=== PATIENT | female | born 1965 | race Two or more races ===

== ENCOUNTER 2018-11-14 08:21 | Outpatient (CLI) | payer OTHER ==
[~2018-11-14] VITALS: Ht 165.1 cm; Wt 83.5 kg
== END 2018-11-14 08:40 | disposition home or self-care (01) ==
LOC: OFIC 805 08:21
DX: H90.3 Sensorineural hearing loss, bilateral (principal); H81.49 Vertigo of central origin, unspecified ear; K11.8 Other diseases of salivary glands

== ENCOUNTER 2018-11-20 07:10 | Outpatient (CLI) | payer OTHER | END 2018-11-20 08:33 | disposition home or self-care (01) | LOC: SONOGRAMA 07:10 → MAMO-SONO 07:15 → SONOGRAMA 08:33 | DX: R22.1 Localized swelling, mass and lump, neck (principal) ==

== ENCOUNTER 2018-12-17 11:41 | Outpatient (CLI) | payer OTHER ==
[~2018-12-17] VITALS: Ht 152.4 cm; Wt 83.5 kg
== END 2018-12-17 11:51 | disposition home or self-care (01) ==
LOC: OFIC 805 11:41
DX: H90.3 Sensorineural hearing loss, bilateral (principal); R42 Dizziness and giddiness; K11.1 Hypertrophy of salivary gland; M06.041 Rheumatoid arthritis without rheumatoid factor, right hand

== ENCOUNTER → 2020-03-02 15:36 | Outpatient (CLI) | payer OTHER | END | disposition home or self-care (01) | LOC: LAB 15:36 | PROVIDERS: ATTEND Otolaryngology | DX: R94.4 Abnormal results of kidney function studies (principal) ==

== ENCOUNTER → 2020-03-02 | Outpatient (CLI) | payer OTHER | END | disposition home or self-care (01) | LOC: OFIC 805 13:30 | PROVIDERS: ATTEND Otolaryngology | DX: K11.1 Hypertrophy of salivary gland (principal) ==

== ENCOUNTER 2020-03-11 08:19 | Outpatient (CLI) | payer OTHER | END 2020-03-11 08:27 | disposition home or self-care (01) | LOC: TOM 08:19 | PROVIDERS: ATTEND Otolaryngology | DX: E21.0 Primary hyperparathyroidism (principal) | CPT/HCPCS: 70491; Q9965 ==

== ENCOUNTER → 2020-03-22 | Outpatient (CLI) | payer OTHER | END | disposition home or self-care (01) | LOC: OFIC 805 11:50 | PROVIDERS: ATTEND Otolaryngology | DX: K11.1 Hypertrophy of salivary gland (principal); M06.8A Other specified rheumatoid arthritis, other specified site ==

== ENCOUNTER 2020-03-31 08:09 | Outpatient (CLI) | payer OTHER | END 2020-03-31 08:16 | disposition home or self-care (01) | LOC: MRI 08:09 | PROVIDERS: ATTEND Otolaryngology | DX: K11.1 Hypertrophy of salivary gland (principal) | CPT/HCPCS: 70543; A9575 ==